=== PATIENT | male | born 1985 | race Caucasian/White ===

== ENCOUNTER 2019-03-24 21:22 | Emergency (ER) | payer BC ==
--- NOTE | 2019-03-25 00:21 | ED ---
Throat Pain/Nasal Congestion - HPI Summary HPI Summary: This pt is a 33 y/o male, accompanied by and child, presenting to [facility] c/ o sore throat since 03/22/19. Pt notes his throat pain has been worsening throughout the day. He states he was able to talk at 15:00 on 03/24/19 but now has a hoarse voice. Denies fever, ear pain. Pt reports he has had a chronic cough for months for which he has been seeing an ENT. He states he coughs because he tries to bring up phlegm and when he does it is described as clear. Pt has also been seeing ENT for snoring at night. He was advised to take Mucinex and had a scope. Pt notes he has hx heart burn for which he takes over the counter Nexium. He has not been able to take it over the past few days due to sore throat. Pt was diagnosed with asthma by ENT with a breathing test. Pt also had a sleep test done and sleep apnea was ruled out. No other PMHx. - History of Current Complaint Chief Complaint: EDUpperRespComplaint Time Seen by Provider: 03/25/19 00:14 Hx Obtained From: Patient Onset/Duration: Lasting Days, Still Present Severity: Moderate Associated Signs And Symptoms: Positive: Hoarseness Cough: Nonproductive - chronic Related History: Other (Noted In Comments) - hx of asthma - Allergies/Home Medications Allergies/Adverse Reactions: Allergies Allergy/AdvReac Type Severity Reaction Status Date / Time No Known Allergies Allergy Verified 03/24/19 21:28 Home Medications: Home Medications Ascorbic Acid [Vitamin C] 500 mg PO DAILY 03/25/19 [History Confirmed 03/25/19] Fluticasone/Vilanterol [Breo Ellipta 200-25 Mcg INH] 1 each IH DAILY 03/25/19 [ History Confirmed 03/25/19] diphenhydrAMINE HCl [Benadryl Allergy 25 MG CAP] 25 mg PO DAILY 03/25/19 [ History Confirmed 03/25/19] guaiFENesin [Mucinex] 1,200 mg PO DAILY 03/25/19 [History Confirmed 03/25/19] PMH/Surg Hx/FS Hx/Imm Hx Endocrine/Hematology History: Denies: Hx Diabetes Respiratory History: Reports: Hx Asthma Infectious Disease History: No Infectious Disease History: Denies: Traveled Outside the [place] in Last 30 Days - Family History Known Family History: Negative: Cardiac Disease - Social History Alcohol Use: Daily Substance Use Type: Reports: None Smoking Status (MU): Never Smoked Tobacco Review of Systems Negative: Fever, Chills Positive: Sore Throat. Negative: Ear Ache Positive: Cough - chronic All Other Systems Reviewed And Are Negative: Yes Physical Exam - Summary Physical Exam Summary: Appearance: Well-appearing, Well-nourished, lying in bed comfortably Skin: Warm, dry, no obvious rash Eyes: sclera anicteric, no conjunctival pallor ENT: mucous membranes moist, pharynx appears normal Neck: Supple, nontender Respiratory: Clear to auscultation, no signs of respiratory distress Cardiovascular: Normal S1, S2. No murmurs. Normal distal pulses in tibial and radial bilaterally. Abdomen: Soft, nontender, normal active bowel sounds present Musculoskeletal: Normal, Strength/ROM Intact Neurological: A&Ox3, awake and alert, mentation is normal, speech is fluent and appropriate Psychiatric: affect is normal, does not appear anxious or depressed Triage Information Reviewed: Yes Vital Signs On Initial Exam: Initial Vitals Temp Pulse Resp BP Pulse Ox 98.8 F 92 16 126/106 97 03/24/19 21:25 03/24/19 21:25 03/24/19 21:25 03/24/19 21:25 03/24/19 21:25 Vital Signs Reviewed: Yes Diagnostics - Vital Signs Vital Signs Temp Pulse Resp BP Pulse Ox 03/24/19 23:25 98.4 F 76 16 124/80 97 03/24/19 21:25 98.8 F 92 16 126/106 97 - Laboratory Lab Statement: Any lab studies that have been ordered have been reviewed, and results considered in the medical decision making process. EENT Course/Dx - Course Assessment/Plan: Pt is a 33 y/o male, with diagnosed asthma, presenting to [facility] c/o sore throat since 03/22/19. Pt notes his throat pain has been worsening throughout the day. He states he was able to talk at 15:00 on 03/24/19 but now has a hoarse voice. Denies fever, ear pain. Pt reports he has had a chronic cough for months for which he has been seeing an ENT. Pt has a normal physical exam. He will be discharged home with follow up from Dr. Joe, hack driver. Pt was given a prescription for Tessalon. Dx: Laryngitis. - Diagnoses Provider Diagnoses: Laryngitis Discharge - Sign-Out/Discharge Documenting (check all that apply): Patient Departure - Discharge home Patient Received Moderate/Deep Sedation with Procedure: No - Discharge Plan Condition: Good Disposition: HOME Prescriptions: Benzonatate CAP* [Tessalon 100 MG CAP*] 100 mg PO TID PRN #15 cap PRN Reason: Cough Patient Education Materials: Laryngitis (ED), Chronic Cough (ED) Referrals: [facility] [Outside] Lucrecia Joe MD [Medical Doctor] - - Billing Disposition and Condition Condition: GOOD Disposition: Home - Attestation Statements Document Initiated by Serafinibe: Yes Documenting Scribe: Azeb Durham Provider For Whom Lizette is Documenting (Include Credential): Robert Juarez MD Scribe Attestation: Azeb Rodriguez, scribed for Robert Juarez MD on 03/25/19 at 1906. Scribe Documentation Reviewed: Yes Provider Attestation: The documentation as recorded by the Azeb gold accurately reflects the service I personally performed and the decisions made by me, Robert Juarez MD Status of Scribe Document: Viewed
[2019-03-25 01:09] VITALS: BP 126/82
== END 2019-03-25 00:40 | disposition home or self-care (01) ==
LOC: ED 21:22
DX: J04.0 Acute laryngitis (principal); J02.9 Acute pharyngitis, unspecified; R05 Cough; J45.909 Unspecified asthma, uncomplicated; R12 Heartburn
CPT/HCPCS: 99282